=== PATIENT | male | born 2000 | race Caucasian/White ===

== ENCOUNTER 2023-06-14 05:38 | Day surgery (SDC) | payer SELFPAY ==
[~2023-06-14] VITALS: Ht 177.8 cm; Wt 61.6 kg
[2023-06-14] VITALS (8 sets, daily range): BP systolic 105–128; BP diastolic 58–80; PULSE 50–78; RESP 14–16; TEMP 98.7–100; O2SAT 95–100
[~2023-06-14 05:38] MED LIST: NO HOME MEDS; cefazolin 2gm/D5W 100mL 100 ML IV ONE; famotidine 20mg tablet PO ONE; ringers solution, lacted 1,000 ML IV SCH
[2023-06-14] MEDS ORDERED: LIDOcaine 1% w/EPI 1:100,000 inj. MDV 50 ML VIAL ONE (06:50)
[2023-06-14] MEDS ORDERED: cocaine 4% topical solution 4ml bottle ONE (06:50)
[2023-06-14] MEDS ORDERED: oxymetazoline 15 ML nasal spray NS ONE ×2 (06:51→07:00)
[2023-06-14] MEDS ORDERED: bacitracin 15gm ointment TP ONE ×2 (06:51→07:00)
[2023-06-14] MEDS ORDERED: cocaine 4% topical solution 4ml bottle TP ONE (07:00)
[2023-06-14] MEDS ORDERED: lidocaine 1%/epinephrine 1:100,000 inj. 50ml multi-dose vial IJ ONE (07:00)
[2023-06-14] MEDS ORDERED: ondansetron/PF 4mg/2ml inj ONE (07:26)
[2023-06-14] MEDS ORDERED: dexamethasone sod phosphate 10mg/ml inj ONE (07:26)
[2023-06-14] MEDS ORDERED: sevoflurane 250ml liquid IH ONE (07:26)
[2023-06-14] MEDS ORDERED: neostigmine methylsulfate 1 MG/ML 10ml vial ONE (07:26)
[2023-06-14] MEDS ORDERED: glycopyrrolate 0.2mg/ml inj ONE (07:26)
[2023-06-14] MEDS ORDERED: meperidine/PF 25mg/ml syringe ONE (07:37)
[2023-06-14] MEDS ORDERED: fentaNYL/PF 50MCG/1 ML 2ML syringe ONE (07:37)
[2023-06-14] MEDS ORDERED: midazolam 1 mg/ML 2ml injection ONE (07:37)
[2023-06-14] MEDS ORDERED: propofol inj 20 ML IV ONE (07:38)
[2023-06-14] MEDS ORDERED: LIDOcaine 2% (20mg/ml) 5ml vial ONE (07:38)
[2023-06-14] MEDS ORDERED: rocuronium 10mg/ml inj IV ONE (07:38)
[2023-06-14] MEDS ORDERED: proCHLORperazine 10 MG/2 ml inj IV PRN (08:15)
[2023-06-14] MEDS ORDERED: morphine 4 MG/ML inj SYRINge IV PRN (08:15)
[2023-06-14] MEDS ORDERED: ringers solution, lacted 1,000 ML IV SCH (08:15)
[2023-06-14] MEDS ORDERED: morphine 2 MG/ML inj. syringe IV PRN (08:15)
[2023-06-14] MEDS ORDERED: ondansetron/PF 4mg/2ml inj IV PRN (08:15)
[2023-06-14] MEDS ORDERED: meperidine/PF 25mg/ml syringe IV PRN ×3 (08:15)
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
--- NOTE | 2023-06-14 09:50 | NUR ---
ALL DISCHARGE CRITERIA HAS BEEN MET. VSS, PAIN AT A TOLERABLE LEVEL, VOIDING AND ABLE TO SAFELY AMBULATE AND TRANSFER SELF. IV TAKEN OUT WITHOUT ANY COMPLICATIONS. ALL DISCHARGE INSTRUCTIONS COVERED WITH PATIENT AND ALL QUESTIONS ANSWERED. PATIENT TAKEN OUT VIA WHEELCHAIR WITH ALL BELONGINGS TO PERSONAL VEHICLE WHERE FAMILY/FRIEND DROVE PATIENT HOME. Addendum: 06/14/23 at 1006 by Marium Desai RN, RN Amended: Links added.
== END 2023-06-14 09:50 | disposition home or self-care (01) ==
LOC: PAS 05:38
PROVIDERS: ATTEND Specialist
DX: J34.2 Deviated nasal septum (principal); J34.3 Hypertrophy of nasal turbinates; F17.290 Nicotine dependence, other tobacco product, uncomplicated; Z72.89 Other problems related to lifestyle; Z79.899 Other long term (current) drug therapy
CPT/HCPCS: 30140; 30520; 82948; J0690; J1100; J2175; J2250; J2405; J2704; J2710; J3010; J3490; J7030; J7120; Z7506; Z7508; Z7512; A4215; A4618; A6449; A7000